=== PATIENT | female | born 2000 | race African-American/Black ===

== ENCOUNTER 2023-04-17 20:57 | Emergency (ER) | payer MEDICAID ==
[~2023-04-17 20:57] MED LIST: ALBUTEROL; B50 MT; EPIN0.3P3 IM; FAMO-135 MT; FLONASE; P50 MT
[2023-04-17 21:07] VITALS: BP 130/70; PULSE 85; RESP 16
== END 2023-04-17 22:00 | disposition left against medical advice (07) ==
LOC: ER 20:57
DX: O26.893 Other specified pregnancy related conditions, third trimester (principal); R10.2 Pelvic and perineal pain; Z53.21 Procedure and treatment not carried out due to patient leaving prior to being seen by health care provider; Z3A.30 30 weeks gestation of pregnancy
CPT/HCPCS: 99281

== ENCOUNTER 2023-04-19 12:01 | Emergency (ER) | payer MEDICAID | END 2023-04-19 13:09 | disposition left against medical advice (07) | LOC: ER 12:01 | DX: U07.1 COVID-19 (principal); Z53.21 Procedure and treatment not carried out due to patient leaving prior to being seen by health care provider ==

== ENCOUNTER 2023-08-10 18:10 | Emergency (ER) | payer MEDICAID ==
[~2023-08-10] VITALS: Ht 162.6 cm; Wt 78.0 kg
[2023-08-10 18:17] VITALS: BP 120/68; PULSE 74; RESP 16; TEMP 98.7; O2SAT 100
== END 2023-08-10 20:39 | disposition home or self-care (01) ==
LOC: ER 18:10
DX: Z00.00 Encounter for general adult medical examination without abnormal findings (principal); F31.9 Bipolar disorder, unspecified; J45.909 Unspecified asthma, uncomplicated
CPT/HCPCS: 99281